=== PATIENT | female | born 1945 | race Caucasian/White ===

== ENCOUNTER → 2017-07-10 12:03 | Outpatient (CLI) | payer MEDICARE, OTHER ==
[2016-01-21 10:46] VITALS: BMI 23.6
[~2017-07-10 12:03] MED LIST: ACTOS15 MG PO; ASPIRIN325 MG PO; CARAFATE1 G PO; CO Q-10200 MG; COZAAR50 MG PO; DETROL2 MG PO; EFFEXOR75 MG PO; FISH OIL 1,2001 CA1 PO; GLUCOPHAGE500 MG PO; LANTUS INSULIN10 ML INJ; LEVOXYL25 MCG PO; LYRICA75 MG PO; MAGNESIUM GLUC500 M1 PO; NEURONTIN600 MG; OXYBUTYNIN CHLOR5 MG PO; OYST-CAL-5001 TAB; PLAVIX75 MG PO; PRAVACHOL40 MG PO; PRILOSEC20 MG PO; PROAIR HFA8.5 GM INH; SINGULAIR10 MG PO; VITAMIN B-1250 MCG PO; VITAMIN D31000 UNIT PO
== END | disposition home or self-care (01) ==
LOC: D.RAD 12:03
DX: M54.2 Cervicalgia (principal)

== ENCOUNTER 2017-09-23 10:49 | Day surgery (SDC) | payer MEDICARE, OTHER ==
[~2017-09-23] VITALS: Ht 154.9 cm; Wt 113.6 kg
[2017-09-23 13:06] VITALS: BP 166/46; Ht 154.9 cm; Wt 113.6 kg
--- NOTE | 2017-09-24 12:06 | PRO ---
PATIENT:DOLORES BOURGEOIS MEDICAL RECORD: [id number] : 49 LOCATION:[facility] ADMISSION DATE: 09/23/17 PROCEDURE PERFORMED BY: WAYLON PACHECO MD DATE OF PROCEDURE: 09/23/2017 Procedure Note HISTORY: Ms. Bourgeois is a 72-year-old female who presents today from Dr. Christie with bilateral hip pain. The patient has seen Dr. Christie for bursitis of the left hip and he is doing the steroid injections. The patient relates that she has had this bilateral posterior hip pain for years and is requesting evaluation with possible injection. Discussed with the patient medical history, the patient is significant for diabetes. The patient had insulin this morning. It is noticed the patient was starting to feel little shaky, took the blood sugar, it was 53. The patient was given 8 ounces of juice, symptoms improved. Discussed the patient's symptomatology. The patient says that she has some increased discomfort climbing stairs or sitting in a chair. The patient has currently no leg radiculopathy. She currently has bilateral posterior hip pain. Upon examination felt over bilateral SI joints and patient related that was the exact pain that she was having. It was felt that the patient was having bilateral SI joint inflammation. Offered bilateral SI joint injections. Risk and benefits were explained to the patient including risk of bleeding, infection and damage to underlying structures. It should be noted that the patient is currently on no anticoagulation therapy at this time. After discussing options, the patient elects to proceed with procedure. The patient was placed in sitting position, Betadine prepped and draped. A skin wheal of 1% lidocaine was used over the right SI joint area. A solution of 10 mL of 0.25% bupivacaine along with 80 mg Depo-Medrol was thus instilled into the right SI joint area. The same technique was used in the left SI joint. The patient really received good pain relief on palpation over both SI joint areas. We related to the patient that she probably need to recheck her blood sugars with her home glucometer, make sure that with the steroid injection that her blood sugars did not get too high. The patient was instructed that a dose with her insulin as instructed as per her home levels. The patient relates that her pain prior to procedure was 7/10. The patient relates that her pain post-procedure was about 3/10. The patient seemed to do extremely well with blocks. The patient is to follow up in 1 week for possible bilateral SI joint injection at that time. TRANSINT:[id number] Voice Confirmation ID: [id number] DOCUMENT ID: [id number] WAYLON PACHECO MD at 1206 CC: [id number] DICTATION DATE: 09/23/17 1427 FUNDRAISING SALE REPRESENTATIVE: 09/24/17 0839 [facility] [place] 09/23/17 [id number] [place] [address]
== END 2017-09-23 14:15 | disposition home or self-care (01) ==
LOC: D.OPS 10:49
DX: M53.3 Sacrococcygeal disorders, not elsewhere classified (principal); Z01.812 Encounter for preprocedural laboratory examination

== ENCOUNTER 2017-09-30 13:05 | Day surgery (SDC) | payer MEDICARE, OTHER ==
[~2017-09-30] VITALS: Ht 154.9 cm; Wt 113.6 kg
[2017-09-30 13:29] VITALS: BP 159/78; Ht 154.9 cm; Wt 113.6 kg
== END 2017-09-30 14:10 | disposition home or self-care (01) ==
LOC: D.OPS 13:05
DX: M53.3 Sacrococcygeal disorders, not elsewhere classified (principal); Z01.812 Encounter for preprocedural laboratory examination

== ENCOUNTER → 2017-10-06 12:30 | Outpatient (CLI) | payer MEDICARE, OTHER ==
[2017-09-30 13:29] VITALS: BMI 47.3
== END | disposition home or self-care (01) ==
LOC: D.US 12:30
DX: I65.23 Occlusion and stenosis of bilateral carotid arteries (principal)

== ENCOUNTER 2017-10-21 12:14 | Day surgery (SDC) | payer MEDICARE, OTHER ==
[~2017-10-21] VITALS: Ht 154.9 cm; Wt 113.4 kg
--- NOTE | ~2017-10-21 | PRO ---
PATIENT:DOLORES LOVETT MEDICAL RECORD: [id number] : 49 LOCATION:[facility] ADMISSION DATE: 10/21/17 PROCEDURE PERFORMED BY: WAYLON PACHECO MD DATE OF PROCEDURE: 10/21/2017 INDICATION: Ms. Lovett is a 72-year-old female who presents today for reinjection of bilateral SI joints. The patient is known to this service and has been seen by myself and Dr. Jalloh and has had 2 previous SI joint injections. The patient is doing extremely well. The patient relates that her pain level is 1/10. Prior to our previous injections, the patient presented with a pain at 9/10 in her bilateral SI joint areas. It should be noted that prior to injection, the patient's blood pressure was noted to be elevated at 201/93. The patient is on losartan 50 mg q.h.s. We elected to give the patient a dose of her losartan prior to discharge to treat her high blood pressure. Risks and benefits were explained to the patient including risk of bleeding, infection, damage to underlying structures. The patient agrees and accepts and elects to proceed with procedure. DESCRIPTION OF PROCEDURE: The patient was placed in sitting position, Betadine prepped and draped. Palpation over the SI joints elicited mild pain, but nothing significant. It was elected to go ahead and reinject both SI joints at this time. After the skin prep and drape, a skin wheal using 1% lidocaine was used to instill over the right SI joint area. A 22-gauge spinal needle was used to locate the right SI joint and a solution of 10 mL which contained approximately 0.25% bupivacaine and 80 mg Depo-Medrol was instilled in the right SI joint area. The same procedure was repeated on the left SI joint. A 1% lidocaine was used for skin wheal. A 22-gauge spinal needle was used to locate the SI joint on the left side and a solution of 10 mL of 0.25% bupivacaine along with 80 mg Depo-Medrol was used and instilled into the left SI joint area. The patient tolerated the procedure well. The patient had zero pain on palpation postinjection over either SI joint area. The patient also complained of an area of discomfort in her left hip area prior to and after injection of the SI joints. It was noticed it was lower, sounds like it was may be the bursitis in her left hip, referred her back to Dr. Joe Christie for perhaps an injection under fluoroscopy for her bursitis on her left hip. The patient tolerated the procedure well. The patient is to be discharged home. The patient is to follow up with Dr. Joe Christie. TRANSINT:[id number] Voice Confirmation ID: [id number] DOCUMENT ID: [id number] WAYLON PACHECO MD at 0859 CC: [id number] DICTATION DATE: 10/21/17 1444 SERVICE MANAGER: 10/22/17 0237 [facility] 10/21/17 [address] [place] [address]
[2017-10-21 14:13] VITALS: BP 185/93; Ht 154.9 cm; Wt 113.4 kg
== END 2017-10-21 15:00 | disposition home or self-care (01) ==
LOC: D.OPS 12:14
DX: M53.3 Sacrococcygeal disorders, not elsewhere classified (principal)

== ENCOUNTER → 2018-09-27 12:37 | Outpatient (CLI) | payer MEDICARE, OTHER | END | disposition home or self-care (01) | LOC: D.US 12:37 | DX: I65.23 Occlusion and stenosis of bilateral carotid arteries (principal) ==

== ENCOUNTER → 2019-01-19 09:28 | Outpatient (CLI) | payer MEDICARE, OTHER ==
--- NOTE | ~2019-01-19 | ST ---
PATIENT:DOLORES LOVETT MEDICAL RECORD: [id number] SEX: F LOCATION:[facility] ORDER #: ADMISSION DATE: 01/19/19 AGE OF PATIENT: 73 REFERRING PHYSICIAN: INTERPRETING PHYSICIAN: MATT MCCLOUD MD DATE OF SERVICE: 01/19/2019 INDICATION: Shortness of breath, angina, hypertension, and hyperlipidemia. DESCRIPTION: The patient was exercised on standard Lexiscan protocol with 32 mCi of sestamibi injected at peak stress, 11 mCi were used previously for rest images. FINDINGS: Gated SPECT reveals preserved ejection fraction at 55% with good wall motioning and thickening and brightening throughout all segments. SPECT imaging Cardiolite was used as myocardial fusion agent. There are reversible changes inferiorly. This includes the basal, mid, apical inferior segments. The degree of reversibility is mild to moderate. The amount of myocardium involved is moderate. OVERALL IMPRESSION: 1. This is an abnormal nuclear stress test, reversible changes inferiorly. 2. Gated SPECT reveals preserved ejection fraction greater than 50% in this patient with ongoing symptomatology, the current scan does suggest the presence of hemodynamically significant coronary artery disease. We will proceed with coronary angiography as followup study. TRANSINT:[id number] Voice Confirmation ID: [id number] DOCUMENT ID: [id number] MATT MCCLOUD MD CC: [id number] DICTATION DATE: 01/19/19 1607 BEEF CATTLE GRAZIER: 01/20/19 0711 [facility]P CLI 01/19/19 [place] [id number] [place] [id number]
== END | disposition home or self-care (01) ==
LOC: D.HCCARDIO 12-07 10:00
PROVIDERS: ATTEND Internal Medicine Interventional Cardiology
DX: R06.02 Shortness of breath (principal)

== ENCOUNTER 2019-02-01 08:13 | Outpatient (CLI) | payer MEDICARE, OTHER ==
[~2019-02-01] VITALS: Ht 154.9 cm; Wt 118.2 kg
--- NOTE | ~2019-02-01 | HEMODYNAMI ---
PATIENT:DOLORES LOVETT MEDICAL RECORD: [id number] : 49 LOCATION:[facility] ADMISSION DATE: 02/01/19 Generatedon:02/01/201910:55 Patient name: DOLORES LOVETT Patient #: [id number] SSN: : 1945 Date of study: 02/01/2019 Page: Of Hemodynamic Procedure Report Patient Data Patient Demographics Procedure consent was obtained First Name: DOLORES Gender: Female Last Name: BONY : 1945 Middle Initial: J Age: 73 year(s) Patient #: [id number] Race: Additional ID: [id number] Contact details Address: [address] [place] [address] State: [place] City: [place] Zip code: [address] Past Medical History Allergies Allergen Reaction Date Comments Reported Other allergy 01/21/2016 Sulfa Admission Admission Data Admission Date: 02/01/2019 Admission Time: 8:13 Arrival Date: 02/01/2019 Arrival Time: 10:30 Admit Source: Other Insurance Payor: Medicare Height (in.): 61 BSA: 2.11 (m2) Height (cm.): 154.94 BMI: 49.23 (kg/m2) Weight (lbs.): 260.54 Weight (kg.): 118.18 Lab Results Lab Result Date: 02/01/2019 Lab Result Time: 0:00 Biochemistry Name Units Result Min Max BUN mg/dl 38 --(----)-* 7 18 Creatinine mg/dl 1.6 --(----)-* 0.6 1.3 CBC Name Units Result Min Max Hemoglobin g/dl 10.4 *-(----)-- 13.5 17.5 Procedure Procedure Types Cath Procedure Diagnostic Procedure [facility] w/Coron[facility] Procedure Description Procedure Date Procedure Date: 02/01/2019 Procedure Start Time: 10:46 Procedure End Time: 10:53 Procedure Staff Name Function Antwan Caraballo MD Performing Physician Gela Lynch RT Scrub Mery Thompson RN Nurse Funmilayo Phelan RT Monitor Procedure Data Cath Procedure Fluoroscopy Diagnostic fluoroscopy Total fluoroscopy Time: 1.6 time: 1.6 min min Diagnostic fluoroscopy Total fluoroscopy dose: 530 dose: 530 mGy mGy Contrast Material Contrast Material Type Amount (ml) Isovue 300 41 Entry Location Entry Primary Successful Side Size Upsize Upsize Entry Closure Riggins ccessful Closure Location (Fr) 1 (Fr) 2 (Fr) Remarks Device Remarks Radial Right 6 Fr Mechanical artery Short Compression Estimated blood loss: 5 ml Diagnostic catheters Device Type Used For End Catheter Placement DIAGNOSTIC Manvel 110cm 5 Procedure Fr catheter ([id number]) Procedure Complications No complications Procedure Medications Medication Administration Route Dosage 0.9% NaCl I.V. 100 ml/hr Oxygen etCO2 Nasal cannula 2 l/min Lidocaine 2% added to field 20 Heparin Flush Bag added to field 2 bags (1000units/500ml NS) Radial Cocktail added to field 1 syringe (Verapomil 2mg/Nitro 400mcg/Heparin 1500units) Zofran I.V. 4 mg Versed I.V. 2 mg Fentanyl I.V. 50 mcg Hemodynamics Rest BSA: 2.11 (m2) HGB: 10.4 (g/dl) O2 Consumption: Estimated: 190.43 (ml/min) O2 Co nsumption indexed: Estimated:90.25 (ml/min/m) Heart Rate: 66 (bpm) Snapshots Pre Cath Intra NCS Post Cath Vital Signs Time Heart Resp SPO2 etCO2 NIBP (mmHg) Rhythm Pain Sedation Rate (ipm) (%) (mmHg) Status Level (bpm) 10:30:46 66 17 95 33.8 182/80(143) NSR 0 (11) 10(A) , No pain 10:35:12 63 14 98 20 172/76(129) NSR 0 (11) 10(A) , No pain 10:39:34 65 18 96 18 160/76(122) NSR 0 (11) 10(A) , No pain 10:43:54 66 14 98 20 161/69(124) NSR 0 (11) 10(A) , No pain 10:48:08 69 19 98 20 149/86(103) NSR 0 (11) 9(A) , No pain 10:52:24 73 19 97 23.7 140/67(105) NSR 0 (11) 10(A) , No pain Medications Time Medication Route Dose Verified Delivered Reason Notes E ffectiveness by by 10:30:04 0.9% NaCl I.V. 100 Antwan Mery used for ml/hr Ilya Thompson kitman 10:30:10 Oxygen etCO2 2 l/min Antwan Mery used for Nasal Ilya Thompson procedure cannula RN 10:30:18 Lidocaine 2% added 20ml Antwangaston Moncada for local to vial Ilya Caraballo MD anesthetic field 10:30:23 Heparin Flush added 2 bags Antwan Antwan used for Bag to Ilya Caraballo MD procedure (1000units/500ml field NS) 10:30:28 Radial Cocktail added 1 Antwangaston Moncada used for (Verapomil to syringe Ilya Caraballo MD procedure 2mg/Nitro field 400mcg/Heparin 1500units) 10:30:38 Zofran I.V. 4 mg Antwan Rojoyla for nausea Ilya Thompson RN 10:43:24 Versed I.V. 2 mg Antwan Rojoyla for Ilya Thompson sedation RN 10:43:38 Fentanyl I.V. 50 mcg Antwan Mery for Ilya Thompson sedation environmental programs specialist Log Time Note 10:07:49 Informed consent obtained and on chart 10:07:54 Diagnostic Cath Status : Elective 10:08:51 Mery Thompson RN sent for patient. Start room use. 10:08:51 Time tracking: Regular hours (M-F 7:00 - 5:00) 10:08:56 Plan of Care:Hemodynamics will remain stable., Cardiac rhythm will remain stable., Comfort level will be maintained., Respiratory function will remain adequate., Patient/ family verbilizes understanding of procedure., Procedure tolerated without complication., Recovers from procedure without complications.. 10:10:37 Lab Result : Creatinine 1.6 mg/dl 10:10:37 Lab Result : BUN 38 mg/dl 10:10:37 Lab Result : Hemoglobin 10.4 g/dl 10:10:39 Admit Source: Other 10:10:46 Patient Height : 61 inches 10:10:52 Patient Weight : 260.54 lbs 10:11:04 Arrival Date: 02/01/2019 10:30:00 AM 10:11:11 Insurance Payor : Medicare 10:23:59 Patient received from Pre/Post Procedure Room to CCL 1 Alert and oriented. Tansferred to table in Supine position. 10:24:00 Warm blankets applied, and riana hugger turned on for patient comfort. 10:24:01 Correct patient and procedure confirmed by team. 10:24:01 ECG and BP/O2 sat monitors applied to patient. 10:29:37 Vital chart was started 10:30:04 0.9% NaCl 100 ml/hr I.V. was administered by Mery Thompson RN; used for procedure; 10:30:10 Oxygen 2 l/min etCO2 Nasal cannula was administered by Mery Thompson RN; used for procedure; 10:30:18 Lidocaine 2% 20ml vial added to field was administered by Antwan Caraballo MD; for local anesthetic; 10:30:23 Heparin Flush Bag (1000units/500ml NS) 2 bags added to field was administered by Antwan Caraballo MD; used for procedure; 10:30:28 Radial Cocktail (Verapomil 2mg/Nitro 400mcg/Heparin 1500units) 1 syringe added to field was administered by Antwan Caraballo MD; used for procedure; 10:30:38 Zofran 4 mg I.V. was administered by Mery Thompson RN; for nausea; 10:33:12 Baseline sample Acquired. 10:33:15 Rhythm: sinus rhythm 10:33:17 Full Disclosure recording started 10:33:21 H&P Date Dictated: 02/01/2019 Within 30 days and on chart., H&P Addendum completed by physician on day of procedure. (MUST COMPLETE FOR ALL OUTPATIENTS). 10:33:23 Pre-procedure instructions explained to patient. 10:33:24 Pre-op teaching completed and patient verbalized understanding. 10:33:28 Family in patients room. 10:33:30 Patient NPO since Midnight. 10:33:32 Is the patient allergic to Iodine/contrast media? No. 10:33:33 Was the patient premedicated? No 10:33:34 Is patient on blood thinner?Yes 10:33:37 ACC The patient was administered the following blood thiners within the last 24 hours: ACCAspirin 10:33:40 Patient diabetic? No. 10:33:42 Previous problem with sedation/anesthesia? No ? 10:33:44 Snore? Yes 10:33:44 Sleep apnea? Yes 10:33:45 Deviated septum? No 10:33:46 Opens mouth fully? Yes 10:33:47 Sticks out tongue? 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 No ? 10:34:04 Pre procedure: right dorsailis pedis pulse 2+ Normal; easily identifiable; not easily obliterated 10:34:06 Pre procedure: left dorsailis pedis pulse 2+ Normal; easily identifiable; not easily obliterated 10:34:08 Patient pain scale 0/10 ?. 10:34:13 IV patent on arrival in left forearm with 0.9% NaCl at [facility]. 10:34:16 Lab results completed and on chart. 10:34:19 Right Radial & Right Groin area was prepped with chlora-prep and draped in sterile fashion 10:34:20 Alarms reviewed by R. N. 10:34:20 Sharps counted by scrub and verified by R.N. 10:39:28 Use device set Radial Dx or PCI 10:39:32 ACIST Syringe (19989) opened to sterile field. 10:39:34 Bag Decanter (2001S) opened to sterile field. 10:39:35 ACIST Hand Control (27006) opened to sterile field. 10:39:35 ACIST Manifold (30085) opened to sterile field. 10:39:36 Tegaderm 4 x 4 (1626W) opened to sterile field. 10:39:38 Medline Cath Pack ([id number]) opened to sterile field. 10:39:39 DIAGNOSTIC WIRE .035 260cm J wire (107610) opened to sterile field. 10:39:40 MBrace Wrist Support ([id number]) opened to sterile field. 10:39:41 SHEATH 6FR Slender (19-1060) opened to sterile field. 10:42:30 --------ALL STOP TIME OUT------ 10:42:30 Final Timeout: patient, procedure, and site verified with staff and physician. All members of the team are in agreement. 10:42:32 Right Radial & Right Groin site verified by team. 10:42:34 Maximum allowable Isovue 300 dose 300ml. Physician notified. (300ml for normal creatinines. For patients with creatinine of 1.7 or higher multiply weight(kg) x 5 divided by creatinine.) 10:42:37 Fire Safety Assessment: A--An alcohol-based skin anteseptic being used preoperatively., C--Open oxygen or nitrous oxide is being used., D--An ESU, laser, or fiber-optic light is being used. 10:42:40 Physical assessment completed. ASA score P 2 - A patient with mild systemic disease as per Antwan Caraballo MD. 10:42:43 Sedation plan: IV Moderate Sedation Medication:Versed, Fentanyl 10:43:24 Versed 2 mg I.V. was administered by Mery Thompson RN; for sedation; 10:43:38 Fentanyl 50 mcg I.V. was administered by Mery Thompson RN; for sedation; 10:45:44 Zero performed for pressure channel P1 10:46:00 Procedure started. 10:46:14 Local anesthetic to right radial artery with Lidocaine 2% by Antwan Caraballo MD.INITIAL ACCESS ONLY 10:46:30 Zero performed for pressure channel P1 10:46:50 A 6 Fr Short sheath was inserted into the Right Radial artery 10:47:19 A DIAGNOSTIC [place] 110cm 5 Fr catheter (049095) was advanced over the wire and used for Procedure. 10:48:19 LV gram done using BARILLAS 10:48:24 Injector settings: Ml/sec: 7, Volume: 15, 10:48:36 EF : 60 % 10:49:26 LCA angiography performed. 10:50:19 RCA angiography performed. 10:50:22 Catheter removed. 10:50:29 TR BAND Standard ([id number]) opened to sterile field. 10:50:37 Procedure ended.(Physican Out) 10:50:50 Fluoroscopy time 01.60 minutes. 10:51:00 Fluoroscopy dose: 530 mGy 10:51:00 Flurop Dose total: 530 10:51:05 Contrast amount:Isovue 300 41ml. 10:51:07 Sharps counted by scrub and verified by R.N. 10:51:14 Sheath removed intact; hemostasis achieved with Mechanical Compression to the Right Radial artery. 10:51:23 TR band inflated with 12cc of air. 10:51:36 Post-procedure physical assessment completed. ASA score P 2 - A patient with mild systemic disease as per Antwan Caraballo MD. 10:51:41 Post procedure rhythm: sinus rhythm 10:52:35 Estimated blood loss: 5 ml 10:52:39 Post procedure instruction explained to patient.Patient verbalizes understanding. 10:52:40 Patient needs reinforcement of post procedure teaching. 10:53:19 Procedure and supply charges have been captured, reviewed, submitted and are correct. 10:53:25 Procedure Complication : No complications 10:53:27 Vital chart was stopped 10:53:27 See physician's report for complete and final results. 10:53:29 Report given to Pre/Post Procedure Room. 10:53:31 Patient transfered to Pre/Post Procedure Room with Bed. 10:53:33 Procedure ended. 10:53:33 Full Disclosure recording stopped 10:53:40 End room use (Document Last) Device Usage Item Name Manufacture Quantity Catalog Hospital Part Current Minimal Lot# / Number Charge Number Stock Stock Serial# Code ACIST Acist 1 41448 436146 [id number] 383489 20 Syringe Medical (33173) Systems Inc Bag Microtek 1 410806 11862 619502 5 Decanter Medical Inc. () ACIST Hand Acist 1 05235 317571 074604 285900 5 Control Medical (73222) Systems Inc ACIST Acist 1 59699 898763 751828 004094 5 Manifold Medical (03703) Systems Inc Tegaderm 4 3M 1 1626W 724680 248772 928869 5 x 4 (1626W) Medline Medline 1 [id number] 482011 85596 193122 5 Cath Pack ([id number]) DIAGNOSTIC [facility] 1 167498 338496 394938 849995 30 WIRE .035 260cm J wire (434965) MBrace Advanced 1 140-0250-00 457871 01180 308538 5 Wrist Vascular Support Dynamics ([id number]) SHEATH 6FR Terumo 1 [id number] 397686 267925 166538 5 Slender (80-1060) DIAGNOSTIC Terumo 1 40-0858 261880 446276 220716 5 Manvel 110cm 5 Fr catheter (118315) TR BAND Terumo 1 [id number] 307080 913709 423016 40 Standard ([id number]) Signature Audit [place] Stage Time Signature Unsigned Intra-Procedure 02/01/2019 Funmilayo Phelan 10:54:56 AM RT(R) Signatures Monitor : Funmilayo Phelan Signature : RT Date : Time : [address] [place] [address]
[~2019-02-01 08:13] MED LIST changes: +PIOGLITAZONE15 MG PO
[2019-02-01] MEDS ORDERED: NEURONTIN 300300 MG PO (08:45)
[2019-02-01] MEDS ORDERED: METOPROLOL TART50 MG PO (08:46)
[2019-02-01] MEDS ORDERED: CARDURA4 MG PO (08:46)
[2019-02-01] MEDS ORDERED: TRAZODONE HCL150 MG PO (08:47)
[2019-02-01] MEDS ORDERED: CELEBREX200 MG PO (08:48)
[2019-02-01] MEDS ORDERED: ULTRAM50 MG PO (08:49)
[2019-02-01] MEDS ORDERED: ATIVAN1 MG PO (08:49)
[2019-02-01] MEDS ORDERED: CLARITIN 10 MG10 MG PO (08:50)
[2019-02-01] MEDS ORDERED: CO Q-10150 MG PO (08:52)
[2019-02-01] MEDS ORDERED: MAGNESIUM OXID500 MG PO (08:53)
[2019-02-01] MEDS ORDERED: BAYER CHEWABLE81 MG PO (08:53)
[2019-02-01 08:56] VITALS: BP 171/61; Ht 154.9 cm; Wt 118.2 kg
[2019-02-01 09:11] LABS: BASOPHILS 0.4 % (0-2); EOSINOPHILS 8.5 % (0-7); HEMATOCRIT 32.4 % (36.0-48.0); HEMOGLOBIN 10.4 g/dL (12-16); IMMATURE GRANULOCYTES 0.1 % (0-5); LYMPHOCYTES 14.9 % (15-50); MCH 27.5 pg (26.0-34.0); MCHC 32.1 g/dL (31.0-37.0); MCV 85.7 fL (80.0-100.0); MEAN PLATELET VOLUME 9.6 fL (7.4-10.4); MONOCYTES 9.3 % (2-11); NEUTROPHILS 66.8 % (40-80); RBC 3.78 10x6/uL (4.00-5.40); WBC 7.6 10x3/uL (4.8-10.8)
[2019-02-01 09:12] LABS: PLATELET COUNT 191 10x3/uL (130-400)
[2019-02-01 09:28] LABS: ANION GAP 9.2 mmol/L (8-16); CALCIUM 9.1 mg/dL (8.5-10.1); CARBON DIOXIDE 30.7 mmol/L (21.0-32.0); CREATININE - SERUM 1.6 mg/dL (0.6-1.3); POTASSIUM - SERUM 4.9 mmol/L (3.5-5.1)
--- NOTE | 2019-02-01 11:20 | NUR ---
PT DROWSY, DENIES ANY C/O. TR BAND IS CDI TO RIGHT WRIST, NO BLEEDING OR HEMATOMA AT SITE. FINGERS WARM AND CAP REFILL IS BRISK. VSS, PT REQUESTS DIET SPRITE AND THIS SERVED. RESP WITH EASE. NO FAMILY AT BEDSIDE, CALL LIGHT IN REACH.
--- NOTE | 2019-02-01 11:43 | NUR ---
TR BAND IS CDI, FINGERS WARM AND CAP REFILL IS BRISK. DENIES ANY NV DEFICIT TO HAND. VSS. FAMILY AT BEDSIDE.
--- NOTE | 2019-02-01 12:00 | NUR ---
PT SLEEPING, RESP WTIH EASE ON O2 AT 2LPM VIA NC. TR BAND IS CDI, FINGERS WARM AND CAP REFILL IS BRISK.
--- NOTE | 2019-02-01 12:18 | NUR ---
3 CC OF AIR WEANED FROM TR BAND WITH NO BLEEDING NOTED. FINGERS WARM AND CAP RFILL IS BRISK. DENIES ANY C/O.
--- NOTE | 2019-02-01 12:37 | NUR ---
3 CC OF AIR WEANED FROM TR BAND WITH NO BLEEDING NOTED. FINGERS WARM AND CAP REFILL IS BRISK.
--- NOTE | 2019-02-01 13:28 | NUR ---
1245 ALL REMAINING AIR WEANED FROM TR BAND WTIH NO BLEEDING NOTED. FINGERS WARM, PULSE PALPABLE. IV DC'D WITH CATH INTACT. 2X2 AND TEGADERM CDI TO RIGHT WRIST. 1255 ASSISTED PT WITH DRESSING FOR DC. ESCORTED P TTO THE BATHROOM VIA WC AND PT VOIDED QS. DENIES ANY C/O. 1315 DC INSTRUCTIONS HAVE BEEN REVIEWED WITH PT AND DAUGHTER WHO VERBALIZE UNDERSTANDING.
--- NOTE | 2019-02-02 14:39 | OP ---
PATIENT NAME: DOLORES LOVETT MEDICAL RECORD: [id number] :49 LOCATION:D.CAT ADMISSION DATE: SURGEON: MATT MCCLOUD MD DATE OF OPERATION: 02/01/2019 PROCEDURES: 1. Left heart catheterization. 2. Selective coronary angiography. 3. Left ventriculogram. INDICATION: Chest pain compatible with angina and abnormal nuclear stress test. PROCEDURE IN DETAIL: After informed consent was obtained with detailed description of risks and benefits as well as alternative therapies, the patient elected to proceed with angiogram and heart catheterization. The right radial area was prepped and draped in normal sterile fashion. The right radial artery was cannulated via modified Seldinger technique with placement of 5-Malaysian sheath. All catheters were exchanged through this sheath. FINDINGS: Left ventriculogram performed in standard 30-degree BARILLAS view reveals good cardiac wall motion throughout all segments. Overall ejection fraction is estimated at 60%. SELECTIVE CORONARY ANGIOGRAPHY: Left main, left anterior descending, left circumflex, and right coronary artery are all smooth-walled vessels with no angiographic evidence of coronary artery disease. OVERALL IMPRESSION: 1. No angiographic evidence of coronary artery disease. 2. Normal left heart pressures. 3. Normal left ventricular systolic function. Chest pain is noncardiac in etiology. No further cardiac workup needs to be ascertained. TRANSINT:[id number] Voice Confirmation ID: [id number] DOCUMENT ID: [id number] MATT MCCLOUD MD at 1439 CC: [id number] DICTATION DATE: 02/01/19 1055 HAND HEEL SEAT FITTER: 02/01/19 1505 DEP CLI 02/01/19 [place] [id number] [place] [id number]
--- NOTE | 2019-02-02 14:39 | HP ---
PATIENT: DOLORES BOURGEOIS MEDICAL RECORD: [id number] ACCOUNT: [id number] LOCATION:[facility] : 49 ADMISSION DATE: 02/01/19 PCP: ANGELA HAWTHORNE MD HISTORY AND PHYSICAL EXAMINATION DIAGNOSES: 1. Shortness of breath, dyspnea on exertion. 2. Angina. 3. Hypertension. 4. Hyperlipidemia. HISTORY OF PRESENT ILLNESS: Ms. Bourgeois presents with dyspnea on exertion and anginal symptomatology. Nuclear stress testing was abnormal with reversible ischemia. She is now brought for cardiac catheterization. PHYSICAL EXAMINATION: GENERAL APPEARANCE: Well-nourished, well-developed, appears stated age. Level of distress, comfortable. PSYCHIATRIC: Mental status, alert, normal affect. Orientation, oriented to time, place and person. EYES: Lids and conjunctiva, noninjected. No discharge, no pallor. ENT: Lips, teeth, gums, normal dentition. Oropharynx, no cyanosis, no pallor. NECK: Carotid arteries, bilateral normal upstroke, no bruits, no thrills. JUGULAR VEINS: No jugular venous pressure or distention. CERVICAL LYMPH NODES: Nontender, nonenlarged. THYROID: Not enlarged. Nontender. No nodules. LUNGS: Respiratory effort, unlabored. CHEST: Normal curvature. No thoracic deformity. No chest wall tenderness. Percussion, resonant. Auscultation, clear. No wheezes, no rales, no rhonchi. CARDIOVASCULAR: Precordial exam, nondisplaced. No heaves or pericardial thrills. Rate and rhythm, regular. Heart sounds, normal S1, normal S2. No S3, no gallop, no rub. Systolic murmur, not heard. Diastolic murmur, not heard. EXTREMITIES: No cyanosis, no edema. Peripheral pulses, full and equal in all extremities, except as noted. No bruits appreciated. ABDOMEN: Soft, nondistended. Normal aorta. No bruit. Nontender. No masses. Liver, nontender, no hepatomegaly. Spleen, nontender, no splenomegaly. MUSCULOSKELETAL: No joint tenderness. No joint swelling. No erythema. NEUROLOGICAL: Normal gait, normal strength, normal tone. SKIN: Warm and dry. OVERALL IMPRESSION: Anginal symptomatology with abnormal nuclear stress test, most likely she has hemodynamically significant coronary artery disease. We will proceed with coronary angiography. Further care depends upon findings of the angiography. TRANSINT:[id number] Voice Confirmation ID: [id number] DOCUMENT ID: [id number] HISTORY AND PHYSICAL [id number] DOLORES BOURGEOIS JEFFREY MD at 1439 CC: [id number] DICTATION DATE: 01/31/19 1605 SHIP RIGGER: 01/31/19 1615 DEP CLI 02/01/19 [place] [id number] [place] [id number]
== END 2019-02-01 13:15 | disposition home or self-care (01) ==
LOC: D.CATH 08:13
PROVIDERS: ATTEND Internal Medicine Interventional Cardiology
DX: R07.89 Other chest pain (principal); R06.02 Shortness of breath; I10 Essential (primary) hypertension; E78.5 Hyperlipidemia, unspecified; Z01.812 Encounter for preprocedural laboratory examination

== ENCOUNTER → 2019-03-28 13:42 | Outpatient (CLI) | payer MEDICARE, OTHER ==
[2019-02-01 08:56] VITALS: BMI 49.2
[~2019-03-28 13:42] MED LIST changes: +ATIVAN1 MG PO; +BAYER CHEWABLE81 MG PO; +CARDURA4 MG PO; +CELEBREX200 MG PO; +CLARITIN 10 MG10 MG PO; +CO Q-10150 MG PO; +MAGNESIUM OXID500 MG PO; +METOPROLOL TART50 MG PO; +NEURONTIN 300300 MG PO; +TRAZODONE HCL150 MG PO; +ULTRAM50 MG PO
== END | disposition home or self-care (01) ==
LOC: D.US 03-25 13:30 → D.CN 08:30 → D.US 08:30 → D.NM 08:30 → D.US 13:42
PROVIDERS: ATTEND Internal Medicine Cardiovascular Disease
DX: I65.23 Occlusion and stenosis of bilateral carotid arteries (principal)

== ENCOUNTER → 2020-04-03 11:10 | Outpatient (CLI) | payer MEDICARE, OTHER ==
[2019-02-01 08:56] VITALS: BMI 49.2
== END | disposition home or self-care (01) ==
LOC: D.US 11:10
PROVIDERS: ATTEND Internal Medicine Cardiovascular Disease
DX: I65.23 Occlusion and stenosis of bilateral carotid arteries (principal)